=== PATIENT | male | born 1995 | race Caucasian/White ===

== ENCOUNTER 2018-01-22 14:35 | Emergency (ER) | payer MEDICAID, SELFPAY ==
[2018-01-22 14:35] VITALS: BP 132/74; PULSE 70; RESP 16; TEMP 36.7; O2SAT 98; BMI 39.7
--- NOTE | 2018-01-22 14:37 | RAD_ITS ---
STUDY: X-RAY - LEFT ANKLE REASON FOR EXAM: Male, 22 years old. Pain TECHNIQUE: 3 view(s) of the ankle. COMPARISON: None. FINDINGS: There is no evidence of fracture or dislocation. There are no significant degenerative changes. There are no radiodense foreign bodies. RAD/Ankle min 3 Views IMPRESSION: No fracture or dislocation. Electronically Signed: Adonay Adams, at 15:13 EDT Tel , Service support ,
--- NOTE | 2018-01-22 15:20 | ED.VISSUMM ---
- ER Visit Summary Date of Service: 01/22/18 Chief Complaint: Left ankle injury History of Present Illness: The patient is a 22 M who is otherwise healthy presents to the emergency department with left ankle injury. About a week ago, the patient sprained his ankle. He states that he has had problems with his ankle before in the past. He states sometimes it clicks and grinds. He was not wearing his ankle brace because he was feeling better today. He was taking out the garbage and stepped sideways in a hole. He did not fall but did turn the ankle again. He has been able to bear weight. He has been taking 200 mg of ibuprofen with little improvement. He denies other injury. Physical Examination: Exam is unremarkable. Patient has some mild tenderness over the lateral malleolus. Sanches test is negative. 2+ pulses. No pain at the proximal fibula. No pain at the head of the fifth metatarsal. Neuro intact. Test Results: [] Emergency Department Course and Treatment: X-rays were obtained of the ankle. There is no evidence of acute fracture. I do feel symptoms are secondary to ligamentous sprain. Patient has had recurrent ankle injury. I will give him outpatient orthopedic follow-up. He will continue his Aircast. I will offer him crutches. He will be placed on 800 mg ibuprofen for pain control. He will be discharged home. Treatment Plan: [] Disposition: Discharge Impression: 1. Left ankle sprain This note was generated with [employer] dictation software. It may contain incorrect words, spelling, and punctuation that were not noted in review of the chart prior to signing ED Disposition - Plan for ED Patient: Chief Complaint: Lower Extremity Injury Instructions: ED Sprain Ankle W X Ray Prescriptions: Ibuprofen [Motrin] 800 mg PO TID PRN PRN #20 tab PRN Reason: Pain Referrals: Rey Roque DO [STAFF PHYSICIAN] -
[2018-01-22 15:29] VITALS: RESP 16
--- NOTE | 2018-01-22 15:30 | ED.RN ---
REVIEWED D/C INSTRUCTIONS, FOLLOW UP CARE, PRESCRIPTION, AND S/S THAT WOULD WARRANT A RETURN TO THE ED WITH PT. PT VERBALIZED AN UNDERSTANDING AND DENIES FURTHER QUESTIONS FOR THIS RN. PT SKIN P/W/D, RESP EVEN AND UNLABORED, PT A& O X 3, NO DISTRESS NOTED.
== END 2018-01-22 15:41 | disposition home or self-care (01) ==
LOC: ED 15:38
PROVIDERS: Emergency Provider Emergency Medicine; Family Provider Pediatrics; PCP Pediatrics
DX: S93.402A Sprain of unspecified ligament of left ankle, initial encounter (principal); W17.2XXA Fall into hole, initial encounter; Y93.E9 Activity, other interior property and clothing maintenance; Y92.9 Unspecified place or not applicable; Y99.9 Unspecified external cause status
CPT/HCPCS: 73610; 99283

== ENCOUNTER 2018-10-12 14:32 | Emergency (ER) | payer MEDICAID, SELFPAY ==
[2018-10-12 14:33] VITALS: BP 127/62; PULSE 77; RESP 16; TEMP 36.6; O2SAT 100; BMI 42.7
[2018-10-12] MEDS: Diphth,Pertuss(Acell),Tet Vac 0.5 ML Vial IM (15:49)
[2018-10-12] MEDS: Ibuprofen 400 MG Tablet 800 MG PO (15:50)
--- NOTE | 2018-10-12 16:41 | ED.VISSUMM ---
- ER Visit Summary Date of Service: 10/12/18 Chief Complaint: Laceration History of Present Illness: The patient is a 23 M with no primary care physician. He is left-hand dominant. He does not know when his last tetanus shot was. He cut his right hand with a razor blade knife at home just prior to coming in emerge department. He has an aching pain is 4-10 severity. States pain is worsened with movement and relieved by rest. Denies any paresthesias distally. Physical Examination: Vitals: Stable. Afebrile. General: Well-nourished and well-developed. Head: Normocephalic atraumatic. Neck: Supple, no lymphadenopathy. No JVD. Nontender. Cardiovascular: Regular rate and rhythm. No murmurs. Respiratory: No respiratory distress. Clear to auscultation bilaterally. Abdominal: Soft, nontender, nondistended, normal bowel sounds. No guarding, rebound, or peritoneal signs. Back: Nontender. Extremities: 1.5 cm laceration in the webspace on the back of his right hand. He is neurovascular intact in both his thumb and his finger. No active bleeding. Skin: Normal color, no rash. Neurologic: Alert and oriented ?3. Cranial nerves II through XII are intact. Normal strength and sensation. Psych: Normal affect. Emergency Department Course and Treatment: Patient had his wound anesthetized and repaired. He tolerated it well. His tetanus was updated. He was given ibuprofen for pain. Treatment Plan: Patient be discharged instructed to follow-up in the [facility] in 14 days for suture removal. Return to the emergency department for any worsening symptoms. Disposition: To home in improved and stable condition. Impression: 1. Laceration right hand, 1.5 cm, repaired. Procedure note: Wound was cleansed with chlorhexidine soap. Anesthetized with 1% lidocaine without epinephrine. Copiously irrigated with normal saline. Wound was explored there is no foreign material present. It was closed with 2 simple interrupted 4-0 ethilon sutures. The patient tolerated it well. This note was generated with [employer] dictation software. It may contain incorrect words, spelling, and punctuation that were not noted in review of the chart prior to signing ED Disposition - Plan for ED Patient: Instructions: ED Laceration Hand Referrals: Angela Rueda [NON-STAFF] - 10-14 Days suture removal
== END 2018-10-12 17:08 | disposition home or self-care (01) ==
LOC: ED 15:53
PROVIDERS: Emergency Provider Emergency Medicine
DX: S61.411A Laceration without foreign body of right hand, initial encounter (principal); W26.0XXA Contact with knife, initial encounter; Y93.9 Activity, unspecified; Y92.9 Unspecified place or not applicable; Y99.9 Unspecified external cause status; Z23 Encounter for immunization
CPT/HCPCS: 12001; 90471; 90715; 99283

== ENCOUNTER 2019-01-09 14:36 | Emergency (ER) | payer MEDICAID, SELFPAY ==
[2018-12-15 14:10] VITALS: BMI 54.3
[2019-01-09 14:36] VITALS: BP 141/80; PULSE 76; RESP 16; TEMP 36.6; O2SAT 99; BMI 41.8
--- NOTE | 2019-01-09 14:53 | EKG12_ITS ---
Test Reason : CP Blood Pressure : / mmHG Vent. Rate : 064 BPM Atrial Rate : 064 BPM P-R Int : 158 ms QRS Dur : 118 ms QT Int : 384 ms P-R-T Axes : 033 052 033 degrees QTc Int : 396 ms Normal sinus rhythm Non-specific intra-ventricular conduction delay Borderline ECG Confirmed by BRET SANTOYO ([id number]), industrial editor DARRELL ROJAS ([id number]) on 01/12/2019 6:15:21 AM Referred By: RIGO Confirmed By:BRET SANTOYO
--- NOTE | 2019-01-09 14:56 | ED.VISSUMM ---
- ER Visit Summary Date of Service: 01/09/19 Chief Complaint: Chest pain History of Present Illness: The patient is a 23 M with chest pain. The pain is substernal and does not radiate. It is sharp. He has had this intermittently over the past month and a half. It was worse today. Worse when working in his yard moving brush and worse when he tenses his muscles. No associated symptoms like nausea, vomiting, shortness of breath, or sweats. No previous history of this. No history of fevers or recent illness. No history of heart disease, lung disease, vascular disease, PE. Physical Examination: Afebrile and vital signs are unremarkable. Patient is alert and oriented. No acute distress. Sitting and moving comfortably. Skin appears normal without diaphoresis or pallor. Heart regular rate and rhythm. No murmurs, rubs, or gallops. Lungs are clear in all phan. Chest is nontender. Extremities nontender with no edema. Pulses strong and equal. Test Results: EKG showed sinus rhythm at a rate of 64. Nonspecific intraventricular conduction delay. No sign of acute ischemia or infarction pattern. Chest x-ray pending. Emergency Department Course and Treatment: Patient likely has myofascial chest pain. He has no ACS risks. PERC negative. No dissection risks. No infectious symptoms. Will check EKG and chest x-ray. Patient treated with Motrin while awaiting results. X-ray negative. EKG reassuring. Symptoms and exam findings are reassuring. Patient is appropriate for outpatient care. He was given a referral. Return for worsening pain, unexplained fevers, new symptoms like shortness of breath, weakness, or numbness. Treatment Plan: As above Disposition: Discharge Impression: 1. Atypical chest pain This note was generated with [employer] software. It may contain incorrect words, spelling, and punctuation that were not noted in review of the chart prior to signing ED Disposition - Plan for ED Patient: Referrals: Care Physician,No Primary [Primary Care Provider] -
--- NOTE | 2019-01-09 15:00 | ED.DCSUM_ITS ---
- ER Visit Summary Date of Service: 01/09/19 Chief Complaint: Chest pain History of Present Illness: The patient is a 23 M with chest pain. The pain is substernal and does not radiate. It is sharp. He has had this intermittently over the past month and a half. It was worse today. Worse when working in his yard moving brush and worse when he tenses his muscles. No associated symptoms like nausea, vomiting, shortness of breath, or sweats. No previous history of this. No history of fevers or recent illness. No history of heart disease, lung disease, vascular disease, PE. Physical Examination: Afebrile and vital signs are unremarkable. Patient is alert and oriented. No acute distress. Sitting and moving comfortably. Skin appears normal without diaphoresis or pallor. Heart regular rate and rhythm. No murmurs, rubs, or gallops. Lungs are clear in all phan. Chest is nontender. Extremities nontender with no edema. Pulses strong and equal. Test Results: EKG showed sinus rhythm at a rate of 64. Nonspecific intraventricular conduction delay. No sign of acute ischemia or infarction pattern. Chest x-ray pending. Emergency Department Course and Treatment: Patient likely has myofascial chest p ain. He has no ACS risks. PERC negative. No dissection risks. No infectious symptoms. Will check EKG and chest x-ray. Patient treated with Motrin while awaiting results. X-ray negative. EKG reassuring. Symptoms and exam findings are reassuring. Patient is appropriate for outpatient care. He was given a referral. Return for worsening pain, unexplained fevers, new symptoms like shortness of breath, weakness, or numbness. Treatment Plan: As above Disposition: Discharge Impression: 1. Atypical chest pain This note was generated with EXFO dictation software. It may contain incorrect words, spelling, and punctuation that were not noted in review of the chart prior to signing ED Disposition - Plan for ED Patient: Referrals: Care Physician,No Primary [Primary Care Provider] -
[2019-01-09] MEDS: Ibuprofen 600 MG Tablet PO (15:08)
--- NOTE | 2019-01-09 15:10 | RAD_ITS ---
STUDY: X-RAY CHEST REASON FOR EXAM: Male, 23 years old. Chest pain TECHNIQUE: PA and lateral views of the chest. COMPARISON: None. FINDINGS: The lungs are clear and expanded. There is no demonstrated pleural abnormality. Normal size heart. Normal mediastinum and torin. Normal visualized pulmonary arteries. Normal visualized aortic arch and descending thoracic aorta. Normal visualized thoracic spine. Normal visualized ribs, clavicles, and shoulders. There is no demonstrated abnormality of the visualized soft tissue structures of the upper abdomen. RAD/Chest PA and Lateral IMPRESSION: Normal x-ray examination of the chest. Electronically Signed: Giancarlo Manriquez MD at 15:32 EDT Tel , Service support ,
[2019-01-09 15:48] VITALS: BP 119/83; PULSE 81; RESP 19; O2SAT 97
--- NOTE | 2019-01-09 16:02 | ED.DEP ---
ED Disposition - Plan for ED Patient: Instructions: ED Chest Pain Atypical Unkn Cause Prescriptions: Ibuprofen [Motrin] 800 mg PO TID PRN PRN #20 tab PRN Reason: Pain Referrals: Nick Hathaway MD [STAFF PHYSICIAN] - Angela R[facility]a [NON-STAFF] - As Needed
[2019-01-09 16:21] VITALS: RESP 16
== END 2019-01-09 16:22 | disposition home or self-care (01) ==
LOC: ED 15:29
PROVIDERS: Emergency Provider Emergency Medicine
DX: R07.89 Other chest pain (principal)
CPT/HCPCS: 71046; 93005; 99283

== ENCOUNTER → 2020-09-30 17:17 | Outpatient (CLI) | payer OTHER, SELFPAY ==
[2020-09-11 17:10] VITALS: BMI 44.4
--- NOTE | 2020-09-30 17:18 | MRI_ITS ---
STUDY: MRI RIGHT KNEE REASON FOR EXAM: Male, 25 years old. Right knee strain. TECHNIQUE: Standardized fat and water weighted pulse sequences were obtained in all 3 orthogonal planes. COMPARISON: X-ray 09/17/2020. FINDINGS: There is a 5 mm tear of the body of the medial meniscus extending to the superior articular surface. Additionally, there is truncation of the inner third of the posterior horn. Normal hyaline cartilage of the medial femorotibial compartment. Normal medial femoral condyle and tibial plateau. Normal medial collateral ligamentous complex (MCL). Normal distal semimembranosus, gracilis and semitendinosus tendons. Normal lateral meniscus. Normal hyaline cartilage of the lateral femorotibial compartment. Normal lateral femoral condyle and tibial plateau. Normal proximal tibiofibular articulation. Normal lateral collateral (fibular) ligament. Normal popliteus tendon. Normal biceps femoris tendon. Normal anterior cruciate ligament (ACL). Normal posterior cruciate ligament (PCL). Normal congruent patellofemoral articulation. Normal hyaline cartilage of the patellofemoral compartment. Normal medial and lateral patellar retinaculum. Normal quadriceps tendon. Normal patellar tendon. There is no joint effusion. The soft tissues are unremarkable. The otherwise visualized osseous structures are unremarkable. MRI/Lower Ext Joint Only (Routine) IMPRESSION: 1. Medial meniscal tear, otherwise unremarkable study. Electronically Signed: Kathleen Loo MD at 22:24 EST Tel , Service support ,
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
== END ==
PROVIDERS: Referring Provider Physician Assistant; Visit Provider Physician Assistant
DX: S86.911A Strain of unspecified muscle(s) and tendon(s) at lower leg level, right leg, initial encounter (principal); X58.XXXA Exposure to other specified factors, initial encounter; Y93.9 Activity, unspecified; Y92.9 Unspecified place or not applicable; Y99.9 Unspecified external cause status
CPT/HCPCS: 70030; 73721

== ENCOUNTER 2021-04-24 13:32 | Emergency (ER) | payer BC, SELFPAY ==
[2021-04-24 13:33] VITALS: BP 140/70; PULSE 71; RESP 16; TEMP 36.2; O2SAT 99; BMI 44.1
--- NOTE | 2021-04-24 14:15 | ED.VIS.GI ---
HPI HPI - GI History of Present Illness Chief Complaint: Abd Pain Narrative Narrative: 25-year-old male who denies significant past medical history presents with right-sided flank pain/abdominal pain that has had since yesterday. He states that last evening he began having sudden onset of right-sided flank pain that radiated across the front. He denies any fevers or chills. No nausea or vomiting. No dysuria or hematuria. He denies any diarrhea but states that he thinks he has irritable bowel syndrome because he has frequency of bowel movements. When he had the sharp, stabbing pain in his right flank, he states he had a loss of appetite. His symptoms resolved last evening, but he woke up and was able to go to work today. However, 1 hour prior to arrival, the pain returned. He states it is in his right lower quadrant of his abdomen and on occasion radiates towards his groin. He denies any true exacerbating or alleviating factors. [facility] Medical History (Updated 04/24/21 @ 16:03 by Nain Vivas MD) Allergic dermatitis due to poison rose Home Medications NK 04/24/21 [History Last Taken Unknown] Allergy/AdvReac Type Severity Reaction Status Date / Time No Known Allergies Allergy Verified 04/24/21 13:35 Social History Smoking Status: Never smoker ROS ROS ED ROS Narrative Constitutional: No fever, no chills. HEENT: No sore throat. No neck pain. No loss of vision. No rhinorrhea. Cardiovascular: No chest pain. No palpitations. No pedal edema. Respiratory: No cough, no shortness of breath. Abdominal: Right-sided flank to right lower quadrant abdominal pain. No nausea. No vomiting. Genitourinary: No dysuria. No hematuria. Musculoskeletal: No myalgias. No arthralgias. Neurologic: No headaches. No dizziness. No lightheadedness. Skin: No rash. No change in color. Psychiatric: No depression. No anxiety. EXAM Physical Exam Narrative Exam Narrative: Afebrile. Vital signs noted. HEENT: Normocephalic. Atraumatic. PERRL, EOMI. Neck soft and supple. No point tenderness or step off. Cardiovascular: Regular rate and rhythm. No murmurs, rubs, or gallops appreciated. Respiratory: No tachypnea. Lungs clear to auscultation bilaterally. Gastrointestinal: Abdomen soft, nontender, with normoactive bowel sounds. Negative heel strike. No rebound or guarding. Neurological: Awake. Alert. Nonfocal, nonlateralizing. Skin: No rash. Normal color. No pallor. Musculoskeletal: No pedal edema. Full range of motion extremities. Const Vital Signs: 04/24/21 13:33 Temperature 97.2 F L Temperature Source Temporal Pulse Rate 71 Respiratory Rate 16 Blood Pressure 140/70 H Blood Pressure Mean 93 Pulse Ox 99 Oxygen Delivery Method Room Air MDM MDM MDM Narrative Medical decision making narrative: Patient declines analgesia. Comprehensive work-up was pursued. He has normal white count at 10.5, hemoglobin normal at 16.0. CT of the abdomen and pelvis shows no acute process. At this point in time, I do not feel that he needs to give a urine sample, he is not having dysuria or hematuria. I think he has more of a nonspecific abdominal pain. His abdomen remains soft. I feel he can be discharged safely home with follow-up to her primary care physician. Return instructions to the emergency department were reviewed. Disposition is discharged home in stable condition. Lab Data Attestation: I reviewed the patient's lab results. Labs: Laboratory Results - last 24 hr 04/24/21 04/24/21 14:10 14:10 WBC 10.5 RBC 5.46 Hgb 16.0 Hct 47.2 MCV 86.4 MCH 29.3 MCHC 33.9 RDW Std Deviation 38.5 RDW Coeff of Dona 12.3 Plt Count 281 MPV 10.2 Immature Gran % (Auto) 0.300 Neut % (Auto) 56.5 Lymph % (Auto) 30.6 [place] % (Auto) 6.9 Eos % (Auto) 5.2 H Baso % (Auto) 0.5 Absolute Neuts (auto) 5.9 Absolute Lymphs (auto) 3.21 Nucleated RBC % 0 Sodium 140 Potassium 3.9 Chloride 105 Carbon Dioxide 30.0 Anion Gap 5 BUN 13 Creatinine 1.13 Estim Creat Clear Calc 98.36 Est GFR (MDRD) Af Amer 103 Est GFR (MDRD) Non-Af 85 BUN/Creatinine Ratio 11.5 Glucose 106 Calcium 9.0 Total Bilirubin 0.50 AST 28 ALT 64 H Alkaline Phosphatase 50 Total Protein 8.2 Albumin 4.2 Globulin 4.0 Albumin/Globulin Ratio 1.0 Radiography Diagnostic Testing: Radiology Impression Abdomen/Pelvis CT 04/24/21 15:00 IMPRESSION: Normal unenhanced CT of the abdomen and pelvis. Electronically Signed: Ketan Robertson MD at 15:19 EDT , Service support , Discharge Plan Triage Chief Complaint: Abd Pain ED Provider: Nain Vivas Dx/Rx/DC Orders Clinical Impression: Abdominal pain Instructions: ED Abdominal Pain Unkn Cause Male... Prescriptions: No Action NK RF: 0 Primary Care Provider: Care Physician,No Primary Referrals: Care Physician,No Primary [Primary Care Provider] - [facility] [NON-STAFF] - 04/27/21 Disposition Disposition: Home, Self Care
[2021-04-24] MEDS: 0.9% Normal Saline 1,000 ML 1000 ML IV (14:19)
[2021-04-24 14:24] LABS: Absolute Lymphocyte Count 3.21 X10^3/uL (0.83-4.51); Absolute Neutrophil Count 5.9 X10^3/uL (2.0-7.7); Basophil# 0.05 X10^3/uL; Basophil% 0.5 % (0-1); Eosinophil# 0.55 X10^3/uL; Eosinophils% 5.2 % (0-5); Hematocrit 47.2 % (40-54); Lymphocyte # 3.21 X10^3/ul (0.83-4.51); Lymphocyte % 30.6 % (19-41); Mean Corp Hgb Conc 33.9 g/dL (32-36); Mean Corpuscular Hgb 29.3 pg (27.0-32.0); Mean Corpuscular Volume 86.4 fL (80-94); Mean Platelet Vol. 10.2 fl (6.2-12.0); Monocyte# 0.72 X10^3/uL; Monocyte% 6.9 % (0-10); NRBC Flagged by Analyzer 0 % (0-5); Neutrophil # 5.93 X10^3/uL (2.7-7.7); Neutrophil % 56.5 % (47-70); Platelet Count 281 K/mm3 (150-450); RBC Distribution Width CV 12.3 % (11.6-14.6); RBC Distribution Width SD 38.5 fl (35.1-43.9); Red Blood Count 5.46 M/mm3 (4.6-6.2); White Blood Count 10.5 K/mm3 (4.4-11.0)
[2021-04-24 14:53] LABS: AST(SGOT) 28 U/L (15-37); Alanine Aminotransfer ALT/SGPT 64 U/L (16-61); Albumin, Serum 4.2 g/dL (3.2-5.0); Alkaline Phosphatase 50 U/L (45-117); Anion Gap 5 (5-15); BUN 13 mg/dL (7-18); BUN/Creat Ratio 11.5 RATIO (10-20); Chloride 105 mmol/L (98-107); Creatinine, Serum 1.13 mg/dL (0.70-1.30); EST Glomerular Filtration Rate 85 mL/min (>60); Est Glom Filt Rate - Afr Amer 103 mL/min (>60); Estimated Creatinine Clearance 98.36 ml/min; Glucose 106 mg/dL (74-106); Potassium 3.9 mmol/L (3.5-5.1); Protein, Total 8.2 g/dL (6.4-8.2); Sodium Level 140 mmol/L (136-145)
--- NOTE | 2021-04-24 15:00 | CT_ITS ---
STUDY: CT ABDOMEN AND PELVIS WITHOUT CONTRAST REASON FOR EXAM: Male, 25 years old. One-day history of abdominal pain. RADIATION DOSAGE (If Supplied By Facility): CTDIvol = ( 22.70 ) mGy, DLP = ( 1257.29 ) mGycm TECHNIQUE: Transaxial images were obtained from the dome of the diaphragm to the symphysis pubis without oral contrast, and without intravenous contrast. Sagittal and coronal images were reconstructed. Individualized dose optimization techniques were used for this CT. COMPARISON: None. FINDINGS: The visualized lung bases are unremarkable. The visualized portions of the heart are within normal limits. Normal liver. Normal gallbladder and extrahepatic biliary system. Normal spleen. Normal pancreas. Normal bilateral adrenal glands. Normal right kidney. Normal left kidney. Normal visualized stomach. Normal small intestine. Normal colon. The appendix is visualized and appears normal. Normal abdominal aorta. Normal inferior vena cava. Normal retroperitoneum. Normal urinary bladder. Normal abdominal wall. Normal osseous structures. CT/Abdomen/Pelvis without Cont IMPRESSION: Normal unenhanced CT of the abdomen and pelvis. Electronically Signed: Ketan Robertson MD at 15:19 EDT , Service support ,
== END 2021-04-24 16:16 | disposition home or self-care (01) ==
PROVIDERS: Emergency Provider Emergency Medicine
DX: R10.9 Unspecified abdominal pain (principal)
CPT/HCPCS: 74176; 80053; 81001; 85025; 96360; 96361; 99283; J7030; A4216